=== PATIENT | male | born 1965 | race American Indian/Alaskan Native ===

== ENCOUNTER 2017-02-03 07:03 | Emergency (ER) | payer MEDICAID, OTHER ==
[2017-02-03 07:12] VITALS: BP 113/80; PULSE 84; RESP 14; TEMP 97.9; O2SAT 99
--- NOTE | 2017-02-03 07:52 | C.PDOC ---
History Of Present Illness 51 y/o male presents to ER requesting detox from crack cocaine and heroin, sts last use this morning. pt denies any physical complaints. pt notified no detox beds available at this time and will be given a list of detox programs. Time Seen by Provider: 02/03/17 07:47 Chief Complaint (Nursing): Substance Abuse History Per: Patient History/Exam Limitations: no limitations Suicide/Self Injury Attempted (Context): None Past Medical History Reviewed: Historical Data, Nursing Documentation, Vital Signs Vital Signs: Last Vital Signs Temp 97.9 F 02/03/17 07:08 Pulse 84 02/03/17 07:08 Resp 14 02/03/17 07:08 BP 113/80 02/03/17 07:08 Pulse Ox 99 02/03/17 07:52 - Medical History Other PMH: substance abuse Surgical History: Appendectomy Family History: States: Unknown Family Hx - Social History Hx Alcohol Use: Yes Hx Substance Use: Yes - Immunization History Hx Tetanus Toxoid Vaccination: Yes Hx Influenza Vaccination: Yes Hx Pneumococcal Vaccination: No Review Of Systems Constitutional: Negative for: Fever, Chills Cardiovascular: Negative for: Chest Pain Respiratory: Negative for: Cough Gastrointestinal: Negative for: Vomiting, Abdominal Pain Skin: Negative for: Rash Neurological: Negative for: Weakness, Numbness Physical Exam - Physical Exam Appears: Non-toxic, No Acute Distress Skin: Normal Color, Warm, Dry Head: Atraumatic, Normacephalic Nose: Normal Oral Mucosa: Moist Neck: Normal ROM Chest: Symmetrical, No Tenderness Cardiovascular: Rhythm Regular, No Murmur Respiratory: Normal Breath Sounds, No Rales, No Rhonchi, No Wheezing Extremity: Normal ROM, No Tenderness, No Pedal Edema Neurological/Psych: Oriented x3, Normal Speech, Normal Cognition, Normal Motor, Normal Sensation ED Course And Treatment O2 Sat by Pulse Oximetry: 99 Progress Note: Case was discussed w/ coloring room worker, who states that there are no detox beds available. Patient made aware; Pt will be discharged w/ a list of detox programs, and information for the detox co-ordinator/instructions for pre- screening process. Patient is agreeable with plan. All questions answered. Medical Decision Making Medical Decision Making: pt notified no detox beds available, given list of detox programs. no physical complaints. Disposition Counseled Patient/Family Regarding: Need For Followup - Disposition Disposition: HOME/ ROUTINE Disposition Time: 08:11 Condition: STABLE Forms: General Discharge Instructions - Clinical Impression Clinical Impression: Drug dependence
== END 2017-02-03 08:20 | disposition home or self-care (01) ==
LOC: C.ER 07:03
DX: F11.20 Opioid dependence, uncomplicated (principal)